=== PATIENT | male | born 1980 | race African-American/Black ===

== ENCOUNTER 2016-11-23 01:10 | Emergency (ER) | payer OTHER ==
[~2016-11-23] VITALS: Ht 172.7 cm; Wt 90.7 kg
[~2016-11-23 01:10] MED LIST: CYCLOBENZAPRINE10 MG ORAL; IBUPROFEN800 MG ORAL; NKM; RANITIDINE HCL150 MG ORAL
[2016-11-23 01:25] VITALS: BP 125/82
[2016-11-23] MEDS ORDERED: CLARITIN10 MG ORAL (01:59)
[2016-11-23] MEDS ORDERED: ADULT WAL-100 MG/5 M ORAL (01:59)
[2016-11-23] MEDS ORDERED: IBUPROFEN600 MG ORAL (01:59)
[2016-11-23] MEDS ORDERED: guaiFENesin 100mg/5ml Liq ud ORAL ONE (02:00)
[2016-11-23 02:05] VITALS: BP 120/80
--- NOTE | 2016-11-28 06:09 | Emergency Room Report ---
History of Present Illness General Chief Complaint: General Complaint Source: Patient Present Illness HPI Patient is a 36-year-old male presented after increase congestion as well as a nonproductive cough and a mild headache. Patient gradual onset of symptoms. He had not been having fever. Patient denied any shortness of breath. He denied any pain or swelling. The patient had no prior history of asthma. He states that he evidently symptoms for several days. He denied recent travel. Allergies: Coded Allergies: No Known Allergies (Unverified , 10/22/15) Patient History Past Medical History: see triage record Reviewed Nursing Documentation: PMH: Agreed, PSxH: Agreed Nursing Documentation-PM Past Medical History: No Stated History Review of Systems All Other Systems: negative except mentioned in HPI Physical Exam Vital Signs Date Time Temp Pulse Resp B/P Pulse Ox O2 Delivery O2 Flow Rate FiO2 11/23/16 01:19 98.2 72 16 125/82 98 Room Air General Appearance: well appearing, no apparent distress, alert, GCS 15 Head: normocephalic, atraumatic ENT: hearing grossly normal, normal voice Neck: full range of motion, supple Respiratory: no respiratory distress, speaking full sentences Cardiovascular #1: normal inspection Gastrointestinal: normal inspection, non tender, soft Musculoskeletal: normal inspection, back normal, no calf tenderness Neurologic: normal gait Psychiatric: mood/affect normal Skin: no rash Medical Decision Making Diagnostic Impression: Primary Impression: Sinusitis ER Course Patient presented for cough. Differential diagnosis included but was not limited to bronchitis, sinusitis, pneumonia, pulmonary embolism, pericarditis, asthma, foreign body. Patient's benign exam and does not appear to require any further imaging or laboratory testing at this time. The patient given ibuprofen for headache as well as a cough syrup for symptomatic treatment. The patient appears to have a viral sinusitis. The patient's or neck stiffness or other signs consistent with meningitis. The patient is advised to follow up with primary care doctor in 1-2 days. Patient is advised to return if any worsening condition or if any changes in status that are concerning. Last Vital Signs Date Time Temp Pulse Resp B/P Pulse Ox O2 Delivery O2 Flow Rate FiO2 11/23/16 02:05 98.4 70 16 120/80 99 Room Air Status: improved Disposition: HOME, SELF-CARE Condition: Stable Scripts Loratadine (CLARITIN) 10 Mg Tablet 10 MG ORAL DAILY, #20 TAB Prov: Ben Cagle 11/23/16 Guaifenesin* (ADULT WAL-TUSSIN*) 100 Mg/5 Ml Liquid 10 ML ORAL Q4H, #120 ML Prov: Ben Cagle 11/23/16 Ibuprofen* (MOTRIN*) 600 Mg Tablet 600 MG ORAL Q8H Y for For Pain, #30 TAB 0 Refills Prov: Ben Cagle 11/23/16 Patient Instructions: Sinus Headache Ben aCgle Nov 28, 2016 06:09
== END 2016-11-23 02:05 | disposition home or self-care (01) ==
LOC: EMR 01:46
DX: J32.9 Chronic sinusitis, unspecified (principal)
CPT/HCPCS: 99282

== ENCOUNTER 2019-02-05 22:45 | Emergency (ER) | payer OTHER ==
[~2019-02-05] VITALS: Ht 172.7 cm; Wt 95.3 kg
[~2019-02-05 22:45] MED LIST changes: +ADULT WAL-100 MG/5 M ORAL; +CLARITIN10 MG ORAL; +IBUPROFEN600 MG ORAL
[2019-02-05 22:46] VITALS: BP 132/84
--- NOTE | 2019-02-05 22:46 | NUR ---
ED Nurse Note: PT AMBULATED TO ED C/O SPIDERS BITES ON RIGHT ARM X 3 DAYS
--- NOTE | 2019-02-05 23:11 | Emergency Room Report ---
History of Present Illness General Chief Complaint: Animal Bite Source: Patient Present Illness HPI 38-year-old male presents with possible spider bite to her right arm. This been ongoing for a while now. His other complaint is that he said he want a physical since he has not seen a doctor in a while. Denies any symptoms. No chest pain. No shortness of breath. Lucas that the itching to the old scar bite area. Denies any other complaint. Allergies: Coded Allergies: No Known Allergies (Unverified , 10/22/15) Patient History Past Medical History: see triage record, old chart reviewed Past Surgical History: none Pertinent Family History: none Social History: Denies: smoking Immunizations: other Reviewed Nursing Documentation: PMH: Agreed; PSxH: Agreed Nursing Documentation-PMH Past Medical History: No Stated History Review of Systems Eye: Denies: eye pain, blurred vision ENT: Denies: ear pain, nose congestion, throat swelling Respiratory: Denies: cough, shortness of breath Cardiovascular: Denies: chest pain, palpitations Gastrointestinal: Denies: abdominal pain, diarrhea, nausea, vomiting Musculoskeletal: Denies: back pain, joint pain Skin: Denies: rash Neurological: Denies: headache, numbness Endocrine: Denies: increased thirst, increased urine Hematologic/Lymphatic: Denies: easy bruising All Other Systems: negative except mentioned in HPI Physical Exam Vital Signs Date Time Temp Pulse Resp B/P (MAP) Pulse Ox O2 Delivery O2 Flow Rate FiO2 02/05/19 22:46 97.5 73 19 132/84 97 Room Air Vitals normal Sp02 EP Interpretation: reviewed, normal General Appearance: well appearing, no apparent distress, alert Head: normocephalic, atraumatic Eyes: bilateral eye PERRL, bilateral eye EOMI ENT: hearing grossly normal, normal pharynx Neck: full range of motion, supple, no meningismus Respiratory: chest non-tender, lungs clear, normal breath sounds Cardiovascular #1: regular rate, rhythm, no murmur Gastrointestinal: normal bowel sounds, non tender, no mass, no organomegaly, no bruit, non-distended Musculoskeletal: back normal, gait/station normal, normal range of motion, other - Rt Arm: He has old scarring from previous possible insect bite. No evidence of any infection. Psychiatric: mood/affect normal Medical Decision Making Diagnostic Impression: Primary Impression: Insect bite of right upper extremity Qualified Codes: S40.861A - Insect bite (nonvenomous) of right upper arm, initial encounter; W57.XXXA - Bitten or stung by nonvenomous insect and other nonvenomous arthropods, initial encounter Last Vital Signs Date Time Temp Pulse Resp B/P (MAP) Pulse Ox O2 Delivery O2 Flow Rate FiO2 02/05/19 22:46 97.5 73 19 132/84 (100) 97 Room Air Status: improved Disposition: HOME, SELF-CARE Condition: Stable Additional Instructions: Follow-up with your doctor in 7 days as needed. You may take Benadryl for itching. Return if symptoms worsen. Reagan Ellison MD Feb 05, 2019 23:11
[2019-02-05 23:12] VITALS: BP 130/81
--- NOTE | 2019-02-05 23:12 | NUR ---
ER DISCHARGE NOTE: Patient is cleared to be discharged per ERMD, pt is aox4, on room air, with stable vital signs. pt was given dc instructions, pt was able to verbalize understanding, pt id band removed. pt is able to ambulate with steady gait. pt took all belongings.
== END 2019-02-05 23:12 | disposition home or self-care (01) ==
LOC: EMR 22:59
DX: S40.861A Insect bite (nonvenomous) of right upper arm, initial encounter (principal); W57.XXXA Bitten or stung by nonvenomous insect and other nonvenomous arthropods, initial encounter
CPT/HCPCS: 99282

== ENCOUNTER 2019-06-20 11:47 | Emergency (ER) | payer OTHER ==
[~2019-06-20] VITALS: Ht 172.7 cm; Wt 90.7 kg
[2019-06-20] MEDS ORDERED: Methocarbamol 500mg tab ORAL ONE (13:00)
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
[2019-06-20] MEDS ORDERED: ROBAXIN-750750 MG PO (13:58)
[2019-06-20] MEDS ORDERED: IBUPROFEN600 MG ORAL (13:58)
[2019-06-20] MEDS ORDERED: LIDODERM700 M1 TOPIC (13:58)
--- NOTE | 2019-06-20 14:27 | NUR ---
ED Nurse Note: Pt cleared by health care Provider for discharge. DC instructions/prescription was given and explained to pt and verbalized understanding of teachings. All medical deviecs such as ID band removed. Pt is AAO x4, ambulatory and left with all personal belongings.
[2019-06-20 14:28] VITALS: BP 132/86
--- NOTE | 2019-06-20 16:27 | Diagnostic Imaging Report ---
Indication: Right wrist pain COMPARISON: None Findings: 3 views of the right wrist were obtained. No acute fractures, malalignment, erosions or periostitis are identified. Soft tissues are unremarkable. Impression: No acute findings.
== END 2019-06-20 14:31 | disposition home or self-care (01) ==
LOC: EMR 13:54
DX: S63.501A Unspecified sprain of right wrist, initial encounter (principal); S60.211A Contusion of right wrist, initial encounter; M54.9 Dorsalgia, unspecified; M62.830 Muscle spasm of back; V87.3 Person injured in collision between car and bus (traffic); Y92.410 Unspecified street and highway as the place of occurrence of the external cause
CPT/HCPCS: 29125; 73110; Z7502; 99283